=== PATIENT | female | born 1980 | race Caucasian/White ===

== ENCOUNTER 2016-06-22 02:11 | Emergency (ER) | payer BC ==
[~2016-06-22 02:11] MED LIST: T PO
[2016-06-22 02:55] LABS: BASOPHILS 0.2 %; BASOPHILS ABSOLUTE 0.01 10/3/uL (0.0-0.16); EOSINOPHILS 1.3 %; EOSINOPHILS ABSOLUTE 0.08 10/3/uL (0.0-0.53); ER CBC TAT 0 Hrs 05 Mins; HEMATOCRIT 34.5 % (36.0-48.0); HEMOGLOBIN 11.4 g/dL (12.0-16.0); IMMATURE GRANULOCYTES 0.2 %; IMMATURE GRANULOCYTES ABSOLUTE 0.01 10/3/uL (0.0-0.11); LYMPHOCYTES 24.5 %; LYMPHOCYTES ABSOLUTE 1.52 10/3/uL (0.67-4.30); MANUAL DIFF NO %; MEAN CORPUSCULAR VOLUME 81.6 fL (80-100); MEAN PLATELET VOLUME 8.7 fL (9.2-13.0); MONOCYTES 6.8 %; MONOCYTES ABSOLUTE 0.42 10/3/uL (0.21-1.20); NEUTROPHILS ABSOLUTE 4.17 10/3/uL (2.02-8.40); PLATELET COUNT 247 10/3/uL (150-400); RBC DISTRIBUTION WIDTH 13.8 % (12.0-16.0); RED CELL COUNT 4.23 10/6/uL (4.0-5.6); WHITE BLOOD CELLS 6.2 10/3/uL (4.5-10.5)
[2016-06-22 03:16] LABS: CALCIUM, SERUM 8.5 MG/DL (8.5-10.4); CHLORIDE, SERUM 108 MMOL/L (96-112); CO2 (CARBON DIOXIDE) 28 MMOL/L (24-34); CREATININE 0.76 MG/DL (0.55-1.02); GFR AFRICAN AMERICAN 117 ML/MIN (>=60); GFR NON AFRICAN AMERICAN 101 ML/MIN (>=60); POTASSIUM, SERUM 3.7 MMOL/L (3.5-5.3); SODIUM, SERUM 142 MMOL/L (135-148)
[2016-06-22 03:17] LABS: GLUCOSE, SERUM 172 MG/DL (60-99)
[2016-06-22 03:28] LABS: BUN (BLOOD UREA NITROGEN) 9 MG/DL (6-23)
[2016-11-20] MEDS ORDERED: ENDOCET1 TA3 PO (14:53)
[2016-11-20] MEDS ORDERED: NORCO1 TA1 PO (14:53)
[2016-11-20] MEDS ORDERED: GLUCOPHAGE1000 MG PO (15:07)
[2016-11-20] MEDS ORDERED: LEVOTHYROXIN50 MCG PO (15:08)
== END 2016-06-22 04:27 | disposition home or self-care (01) ==
LOC: ER 02:11
PROVIDERS: Specialist
DX: R73.9 Hyperglycemia, unspecified (principal); Z88.0 Allergy status to penicillin; Z88.2 Allergy status to sulfonamides; Z88.5 Allergy status to narcotic agent; Z88.1 Allergy status to other antibiotic agents; Z79.899 Other long term (current) drug therapy
CPT/HCPCS: 80048; 85025; 99285; J1200; J2930

== ENCOUNTER 2016-11-02 08:23 | Emergency (ER) | payer BC ==
[~2016-11-02 08:23] MED LIST changes: -T PO; +TYLENOL ARTH650 MG PO
== END 2016-11-02 14:01 | disposition home or self-care (01) ==
LOC: ER 08:23
DX: M62.838 Other muscle spasm (principal); Z88.0 Allergy status to penicillin; Z88.5 Allergy status to narcotic agent; Z88.2 Allergy status to sulfonamides; Z88.1 Allergy status to other antibiotic agents; Z79.899 Other long term (current) drug therapy
CPT/HCPCS: 93005; 96374; 99283; A9270-GY; J1885